=== PATIENT | female | born 1985 | race African-American/Black ===

== ENCOUNTER 2019-02-08 20:00 | Emergency (ER) | payer BC ==
[~2019-02-08] VITALS: Ht 162.6 cm; Wt 64.0 kg
[2019-02-08 20:10] VITALS: Ht 162.6 cm; Wt 64.0 kg
[2019-02-08 23:42] VITALS: BP 106/70
== END 2019-02-08 23:42 | disposition home or self-care (01) ==
LOC: ED 20:00
DX: N63.0 Unspecified lump in unspecified breast (principal)
CPT/HCPCS: 76641